=== PATIENT | female | born 1985 | race Caucasian/White ===

== ENCOUNTER 2016-09-17 05:30 | Emergency (ER) | payer OTHER ==
[~2016-09-17] VITALS: Ht 154.9 cm; Wt 65.5 kg
[~2016-09-17 05:30] MED LIST: ABILIFY30 MG PO; ACID CONTROL150 MG PO; BACTRIM,SEPT1 TABLET PO; CEFTIN500 MG PO; CLARITIN,ALAVAR10 MG PO; COLACE100 MG PO; DOCUSATE SODIU100 MG PO; EFFEXOR XR150 MG PO; ELAVIL25 MG PO; FEOSOL325 MG PO; FERROUS SULFAT325 MG PO; IBUPROFEN800 MG PO; IMITREX100 MG PO; LORADAMED10 MG PO; MOTRIN800 MG PO; OXYCODONE-APAP1 EACH PO; PERCOCET 5/31 TABLET PO; PRENATAL TABLE1 EAC3 PO; PROTONIX40 MG PO; Percocet 5/325,Endoc PO; REGLAN10 MG PO; SEROQUEL50 MG PO; TAMIFLU30 MG PO; TOPAMAX100 MG PO; TRAMADOL HCL50 MG PO; TRAZODONE HCL50 MG PO; VALIUM2 MG PO; XANAX0.5 MG PO; ZANAFLEX4 MG PO; ZOFRAN8 MG PO; ZOLOFT100 MG PO
[2016-09-17 05:55] LABS: HEMATOCRIT 39.6 % (36.0-46.0); MCH 27.5 PG (29.0-34.0); MCHC 32.8 G/DL (30.0-36.0); MCV 83.7 FL (83-99); MEAN PLAT.VOLUME 9.1 uM^3 (9.5-12.4); PLATELET COUNT 308 K/uL (156-360); RBC DIS.WIDTH-CV 13.8 % (11.8-14.6); RBC DIS.WIDTH-SD 41.6 % (39-53); RED BLOOD COUNT 4.73 M/uL (3.80-5.20); WHITE BLOOD COUNT 8.6 K/uL (4.1-10.2)
[2016-09-17 06:05] LABS: CHLORIDE 108 mEq/L (99-109); POTASSIUM 3.7 mEq/L (3.7-5.4); SODIUM 140 mEq/L (136-147)
[2016-09-17 06:08] LABS: ANION GAP 11 MEQ/L (2-14)
[2016-09-17 06:09] LABS: TOTAL BILIRUBIN 0.3 mg/dL (0.0-1.0)
[2016-09-17 06:11] LABS: ALKALINE PHOSPHATASE 86 IU/L (3-129); GFR ESTIMATE (CALCULATED) > 59 mL/min/
[2016-09-17 06:12] LABS: UREA NITROGEN (BUN) 10 mg/dL (9-23)
[2016-09-17 06:20] LABS: QUANTITATIVE HCG < 4.0 MIU/ML
[2016-09-17 06:24] LABS: GLUCOSE 117 mg/dL (70-99)
[2016-09-17 06:33] LABS: ADD MIUA? YES; BILIRUBIN NEGATIVE; BLOOD NEGATIVE; COLOR YELLOW ((YELLOW)); GLUCOSE (STRIP) NEGATIVE; KETONES NEGATIVE; LEUKOCYTES SMALL; NITRITE NEGATIVE; PROTEIN (STRIP) NEGATIVE; SPECIFIC GRAVITY 1.024 (1.000-1.030); UROBILINOGEN 0.2 MG/DL (0.2-1.0)
[2016-09-17 06:43] LABS: BACTERIA 1+; CASTS NONE SEEN /LPF; CRYSTALS NONE SEEN; EPITHELIAL CELLS 1+; MUCUS NONE SEEN; RED BLOOD CELLS 0-5 /HPF (0-5); UCUL ADDED? NO; WHITE BLOOD CELLS 0-5 /HPF (0-5)
[2016-09-17] MEDS ORDERED: ZOFRAN ODT4 MG PO (09:24)
[2016-09-17] MEDS ORDERED: IMODIUM MS REL1 EACH PO (09:24)
[2016-09-17] MEDS ORDERED: BENTYL20 MG PO (09:24)
[2016-09-17 09:35] VITALS: BP 117/63
== END 2016-09-17 09:36 | disposition home or self-care (01) ==
LOC: EME 05:30
DX: R10.84 Generalized abdominal pain (principal); R11.10 Vomiting, unspecified; R19.7 Diarrhea, unspecified; Z87.891 Personal history of nicotine dependence
CPT/HCPCS: 80053; 80178; 81003; 84702; 85027; 99281; 99285; J1885; J2405; J2765; J7030

== ENCOUNTER 2017-02-23 19:35 | Emergency (ER) | payer OTHER ==
[~2017-02-23] VITALS: Ht 154.9 cm; Wt 69.6 kg
[~2017-02-23 19:35] MED LIST changes: +BENTYL20 MG PO; +IMODIUM MS REL1 EACH PO; +ZOFRAN ODT4 MG PO
[2017-02-23] MEDS ORDERED: PEN-VEE K,VEET500 MG PO (21:59)
[2017-02-23] MEDS ORDERED: PERCOCET 5/31 TABLET PO (21:59)
[2017-02-23 22:11] VITALS: BP 151/92
== END 2017-02-23 22:12 | disposition home or self-care (01) ==
LOC: EME 19:35
DX: K08.89 Other specified disorders of teeth and supporting structures (principal)
CPT/HCPCS: 99281; 99283

== ENCOUNTER 2017-05-15 09:53 | Emergency (ER) | payer OTHER ==
[~2017-05-15] VITALS: Ht 152.4 cm; Wt 71.3 kg
[~2017-05-15 09:53] MED LIST changes: +PEN-VEE K,VEET500 MG PO
[2017-05-15 10:02] VITALS: BP 125/87
[2017-05-15] MEDS ORDERED: INDOCIN50 MG PO (10:18)
[2017-05-15] MEDS ORDERED: PEN-VEE K,VEET500 MG PO (10:18)
== END 2017-05-15 10:51 | disposition home or self-care (01) ==
LOC: EME 09:53
DX: K08.89 Other specified disorders of teeth and supporting structures (principal); R22.0 Localized swelling, mass and lump, head
CPT/HCPCS: 99281; 99284